=== PATIENT | female | born 1965 | race Caucasian/White ===

== ENCOUNTER 2018-02-10 09:42 | Day surgery (SDC) | payer OTHER ==
[2018-02-10 10:31] VITALS: BMI 24.4
[2018-02-10] MEDS ORDERED: MIDAZOLAM HCL 2 MG/2 ML SINGLE DOSE VIAL ONE (11:09)
[2018-02-10] MEDS ORDERED: PROPOFOL 20 ML ONE (11:09)
[2018-02-10] MEDS ORDERED: LIDOCAINE HCL 2% (50ML VIAL) INF ONE (11:45)
[2018-02-10 12:40] VITALS: TEMP 98
[2018-02-10] MEDS ORDERED: oxyCODONE HCL 5 MG TABLET ONE (13:16)
[2018-02-10] MEDS ORDERED: oxyCODONE HCL 5 MG TABLET PO PRN ×2 (13:22)
[2018-02-10] MEDS ORDERED: PROMETHAZINE HCL 25 MG/1 ML VIAL IVPUSH PRN (13:22)
[2018-02-10] MEDS ORDERED: ONDANSETRON 4 MG/2 ML VIAL IVPUSH PRN (13:22)
[2018-02-10 14:46] VITALS: BP 118/66; PULSE 70
--- NOTE | 2018-02-10 19:15 | OP ---
DATE OF OPERATION: 02/10/2018 PREOPERATIVE DIAGNOSIS: Right de Quervain's tenosynovitis. POSTOPERATIVE DIAGNOSIS: Right de Quervain's tenosynovitis. OPERATIVE PROCEDURE: Right de Quervain's release. SURGEON: Norm Fernandez MD ANESTHESIA: Local with sedation. COMPLICATIONS: None. ESTIMATED BLOOD LOSS: Minimal. INDICATIONS FOR PROCEDURE: The patient is a 52-year-old female with the above findings, indicated for operative treatment. Risks, benefits, and alternatives were discussed with the patient at length. Proper informed consent was obtained. PROCEDURE: After proper identification of the patient and correct operative site, the patient was brought to the operating room and placed supine on the operating room table. All prominences were well-padded. Sedation was given by the anesthesiologist. Local anesthesia was given with 2% lidocaine. The right upper extremity was prepped and draped in the usual sterile fashion. A well-padded tourniquet was placed after the sterile prep. Esmarch bandage was used to exsanguinate the right upper extremity. The tourniquet was inflated to 250 mmHg. A transverse incision was made over the radial styloid. Incision was made sharply through the skin with blunt and sharp dissection to the subcutaneous tissues. Neurovascular structures were carefully protected. The 1st dorsal compartment was identified and found to be swollen. It was divided along its dorsal border and the tendons were found to have significant synovitis. One of the tendons was actually frayed and debrided. One separate sub-compartment was noted and this was opened as well. Wrist was taken through a range of motion and there was no subluxation of the tendons. The wound was irrigated with saline and repaired with a 4-0 Monocryl suture. Steri-Strips and sterile dressings were applied. The patient was reversed from anesthesia and brought to the recovery room in stable condition. She tolerated the procedure well. Margaret [id number]
== END 2018-02-10 14:15 | disposition home or self-care (01) ==
LOC: FASU 09:42
PROVIDERS: ATTEND Orthopaedic Surgery Hand Surgery
PROC: 0LN50ZZ Release Right Lower Arm and Wrist Tendon, Open Approach (ICD-10-PCS; principal; 2018-02-10 11:30)
DX: M65.4 Radial styloid tenosynovitis [de Quervain] (principal)

== ENCOUNTER 2022-10-13 08:47 | Emergency (ER) | payer OTHER ==
[2022-10-13 08:56] VITALS: BP 152/98; PULSE 85; RESP 18; TEMP 98.8; BMI 72.2
[2022-10-13] MEDS ORDERED: ACETAMINOPHEN 500 MG TABLET (FP) PO ONE (08:58)
[2022-10-13] MEDS ORDERED: LIDOCAINE 5% TOPICAL PATCH TP ONE (08:58)
[2022-10-13] MEDS ORDERED: ACETAMINOPHEN 500 MG TABLET (FP) ONE (09:18)
[2022-10-13] MEDS ORDERED: LIDOCAINE 5% TOPICAL PATCH ONE (09:19)
[2022-10-13] MEDS ORDERED: LIDOCAINE PATCH REMOVAL MC SCH (22:00)
== END 2022-10-13 10:10 | disposition home or self-care (01) ==
LOC: FER 08:47
DX: M54.50 Low back pain, unspecified (principal); W01.0XXA Fall on same level from slipping, tripping and stumbling without subsequent striking against object, initial encounter
CPT/HCPCS: 72100-TC-FY; 99283-25

== ENCOUNTER → 2024-03-17 | Day surgery (SDC) | payer OTHER | END | disposition home or self-care (01) | LOC: FMAMMOTONE 09:27 | PROVIDERS: ATTEND Nurse Practitioner Family | PROC: 0HBT3ZX Excision of Right Breast, Percutaneous Approach, Diagnostic (ICD-10-PCS; principal; 2024-03-17) | DX: N60.11 Diffuse cystic mastopathy of right breast (principal); N64.89 Other specified disorders of breast; R92.1 Mammographic calcification found on diagnostic imaging of breast | CPT/HCPCS: 19081; 76098-TC-FY; 88305-TC ==